=== PATIENT | female | born 1970 | race Caucasian/White ===

== ENCOUNTER 2018-04-22 10:55 | Day surgery (SDC) | payer BC ==
[2018-04-21 09:12] VITALS: BMI 31.8
[~2018-04-22 10:55] MED LIST: LACTATED RINGERS 1,000 ML IV SCH; LIDOCAINE 1% 20 ML VIAL (10MG/ML) FOR IV START INTRADERMA PRN
[2018-04-22 11:31] VITALS: RESP 16; TEMP 97.6
[2018-04-22 11:37] LABS: Glucose,Whole Blood 141 mg/dL (75-99)
[2018-04-22] MEDS ORDERED: PROPOFOL 10 MG/ML 20 ML VIAL IV ONE (12:01)
[2018-04-22] MEDS ORDERED: LIDOCAINE 1% INJ 10MG/ML (20 ML MDV) ONE (12:01)
[2018-04-22 12:24] VITALS: PULSE 75
--- NOTE | 2018-04-22 12:37 | P.PCN ---
Date of Procedure: 04/22/18 Procedure(s) Performed: Procedure: Esophagogastroduodenoscopy and biopsy. Preoperative diagnosis: Chronic reflux symptoms. Postoperative diagnosis: 1. Small sliding hiatal hernia with no obvious esophagitis or complicated reflux disease. 2. Mild antral gastritis. 3. Multiple biopsies obtained from the duodenum, antrum and esophagus. Preparation sedation: Was provided by anesthesia. Brief clinical history: The patient is a 48-year-old female who was scheduled for this evaluation because of chronic reflux symptoms. The patient has required twice a day dosing of PPI. No alarm symptoms. This evaluation is to assess for complicated reflux disease or other pathology. She had a barium swallow in February. This would be her first upper endoscopy. Procedure: With the patient on her left lateral decubitus position and after informed consent and adequate sedation, I passed the Olympus-GIF H190 video upper endoscope through the cricopharyngeus down the esophagus. GE junction was around 36-37 cm from the incisors and there was a small sliding hiatal hernia with no obvious esophagitis or complicated reflux disease. The endoscope was then passed into the stomach which was insufflated with air and inspected in detail including the retroflex view in the cardia. There was some mottling and erythema in the antrum but no ulcers or erosions. Pyloric channel , duodenal bulb, post bulbar area and descending duodenum appeared within normal limits. Because of her symptoms, I obtained biopsies from the duodenum, antrum and esophagus then the endoscope was withdrawn. The patient tolerated the procedure well. Plan: The patient was reassured. Will await biopsy results. Will continue antireflux diet and measures. Further plans based on her course and biopsy results. She will follow-up with you as planned.
[2018-04-22 12:41] VITALS: BP 124/85
== END 2018-04-22 12:58 | disposition home or self-care (01) ==
LOC: ORWHC2ENDO 10:55
DX: K29.50 Unspecified chronic gastritis without bleeding (principal); K21.9 Gastro-esophageal reflux disease without esophagitis; K44.9 Diaphragmatic hernia without obstruction or gangrene; F39 Unspecified mood [affective] disorder; I10 Essential (primary) hypertension; E78.5 Hyperlipidemia, unspecified; E11.9 Type 2 diabetes mellitus without complications; E07.9 Disorder of thyroid, unspecified; Z79.84 Long term (current) use of oral hypoglycemic drugs; Z79.82 Long term (current) use of aspirin; Z79.899 Other long term (current) drug therapy; Z79.890 Hormone replacement therapy
CPT/HCPCS: 88305; 43239; J2001; J2704

== ENCOUNTER 2018-05-22 15:36 | Emergency (ER) | payer BC ==
[2018-05-22 15:40] VITALS: RESP 18; TEMP 98.4
[2018-05-22] MEDS ORDERED: KETOROLAC 30 MG/ML 1 ML VIAL IVP STA (15:48)
--- NOTE | 2018-05-22 15:51 | ED ---
Extremity Problem HPI - General Chief complaint: Extremity Problem,Nontraumatic Stated complaint: Poss DVT, leg swelling Time Seen by Provider: 05/22/18 15:42 Source: patient Mode of arrival: ambulatory Limitations: no limitations - History of Present Illness Initial comments: 48-year-old female presenting with left lower extremity pain for the past 2 weeks. Patient states started in her calf and is now localized to the lower extremity below the knee, has been constant, is worse with ambulation, and is improved with naproxen. She denies any history of DVT or PE but admits to exogenous hormone therapy. She denies any recent travel, surgery, or active cancer. She denies any chest pain, shortness of breath, or fevers. Denies any trauma. - Related Data Home Medications Medication Instructions Recorded Confirmed Hydrochlorothiazide 12.5 mg PO QAM 04/20/18 04/22/18 Labetalol [Trandate] 100 mg PO BID 04/20/18 04/22/18 Levothyroxine Sodium [Synthroid] 50 mcg PO DAILY 04/20/18 04/22/18 Pantoprazole [Protonix] 40 mg PO BID 04/20/18 04/22/18 metFORMIN HCL ER [Glucophage Xr] 500 mg PO BID 04/20/18 04/22/18 Aspirin [Adult Low Dose Aspirin EC] 81 mg PO HS 04/21/18 04/22/18 Atorvastatin [Lipitor] 40 mg PO HS 04/21/18 04/22/18 Estradiol 0.5 mg PO DAILY 04/21/18 04/22/18 FLUoxetine HCL [PROzac] 20 mg PO DAILY 04/21/18 04/22/18 Fenofibrate,Micronized 134 mg PO DAILY 04/21/18 04/22/18 [Fenofibrate] Progesterone, Micronized 200 mg PO DAILY 04/21/18 04/22/18 [Progesterone] Allergies Allergy/AdvReac Type Severity Reaction Status Date / Time Penicillins Allergy Rash/Hives Verified 05/22/18 15:40 Review of Systems ROS Statement: Those systems with pertinent positive or pertinent negative responses have been documented in the HPI. Review of Systems Constitutional: Denies fever, chills Eyes: Denies change in vision, Denies pain Ears, nose, mouth, throat: Denies headaches, Denies sore throat Cardiovascular: Denies chest pain. Denies palpitations Respiratory: Denies shortness of breath, Denies cough Gastrointestinal: Denies abdominal pain. Denies nausea, vomiting, diarrhea. Genitourinary: Denies hematuria, Denies infections Musculoskeletal: Positive LLE pain. Denies swelling Integumentary: Denies rash Neurological: Denies headache, focal weakness, focal numbness Psychiatric: Denies anxiety, Denies depression Hematologic/Lymphatic: Denies easy bleeding or bruising ROS Other: All systems not noted in ROS Statement are negative. Past Medical History Past Medical History: Diabetes Mellitus, GERD/Reflux, Hyperlipidemia, Hypertension, Thyroid Disorder Additional Past Medical History / Comment(s): hiatal hernia, History of Any Multi-Drug Resistant Organisms: None Reported Past Surgical History: Section, Orthopedic Surgery Additional Past Surgical History / Comment(s): right hand surgery to remove cyst from hand and finger Past Anesthesia/Blood Transfusion Reactions: No Reported Reaction Past Psychological History: Anxiety, Depression Smoking Status: Current every day smoker Past Alcohol Use History: None Reported Past Drug Use History: None Reported - Past Family History Mother Family Medical History: No Reported History General Exam - General Exam Comments Initial Comments: General: Awake, alert, No acute Distress HENT: Normocephalic. Atraumatic Eyes: PERRL. EOMI. No scleral icterus. No injected conjunctiva Neck: Full ROM Chest/Lungs: Clear to auscultation bilaterally. No wheezing, rhonchi, or rales Cardiac: Regular rate, rhythm. No murmurs or rubs Abdomen/GI: Soft, nontender, nondistended. No rebound, guarding, or rigidity. Musculoskeletal: Full ROM.Tenderness to LLE calf. Varicose veins on left anterior lower extremity distal to the knee. No swelling or. deformity of BLE. 2+DP pulses bilaterally Skin: Warm, dry, intact Neurologic: A/Ox3, no weakness, no sensory deficit, no abnormal gait, no coordination deficit Limitations: no limitations Course Vital Signs 05/22/18 05/22/18 15:38 18:04 Temperature 98.4 F Pulse Rate 104 H 77 Respiratory 18 18 Rate Blood Pressure 162/78 121/86 O2 Sat by Pulse 99 98 Oximetry Medical Decision Making - Medical Decision Making 48-year-old female presenting with left lower chest pain. Initial exam the patient is awake alert no acute distress. Vital signs are stable. Patient denies any chest pain or shortness of breath. At this time a PE workup is not indicated. Her lower extremity ultrasound was negative. Her x-rays were negative for acute process. There is no evidence of cellulitis of her lower extremity. At this time no further emergent workup indicated. Patient is instructed to follow-up with her primary care doctor next week. We also discussed her by Reji odonnell that she states her work shoes her old and she is on her feet frequently. Patient was discharged in stable condition and understands return to ER precautions - Lab Data Result diagrams: 05/22/18 16:17 05/22/18 16:17 Lab Results 05/22/18 05/22/18 Range/Units 16:17 16:17 WBC 8.7 (3.8-10.6) k/uL RBC 4.50 (3.80-5.40) m/uL Hgb 13.4 (11.4-16.0) gm/dL Hct 41.0 (34.0-46.0) % MCV 91.0 (80.0-100.0) fL MCH 29.8 (25.0-35.0) pg MCHC 32.8 (31.0-37.0) g/dL RDW 14.4 (11.5-15.5) % Plt Count 395 (150-450) k/uL Neutrophils % 61 % Lymphocytes % 29 % Monocytes % 5 % Eosinophils % 3 % Basophils % 1 % Neutrophils # 5.3 (1.3-7.7) k/uL Lymphocytes # 2.6 (1.0-4.8) k/uL Monocytes # 0.4 (0-1.0) k/uL Eosinophils # 0.3 (0-0.7) k/uL Basophils # 0.1 (0-0.2) k/uL Sodium 142 (137-145) mmol/L Potassium 4.1 (3.5-5.1) mmol/L Chloride 109 H (98-107) mmol/L Carbon Dioxide 25 (22-30) mmol/L Anion Gap 8 mmol/L BUN 16 (7-17) mg/dL Creatinine 0.77 (0.52-1.04) mg/dL Est GFR (CKD-EPI)AfAm >90 (>60 ml/min/1.73 sqM) Est GFR (CKD-EPI)NonAf >90 (>60 ml/min/1.73 sqM) Glucose 113 H (74-99) mg/dL Calcium 10.2 (8.4-10.2) mg/dL HCG, Qual Not Detected Disposition Clinical Impression: Leg pain Disposition: HOME SELF-CARE Condition: Good Instructions (If sedation given, give patient instructions): Arthralgia (ED), Leg Pain (ED) Is patient prescribed a controlled substance at d/c from ED?: No Referrals: Kaiden Grijalva MD [Primary Care Provider] - 1-2 days
[2018-05-22 16:31] LABS: Basophils # (A) 0.1 k/uL (0-0.2); Basophils % (A) 1 %; Eosinophils # (A) 0.3 k/uL (0-0.7); Eosinophils % (A) 3 %; HGB 13.4 gm/dL (11.4-16.0); Lymphocytes # (A) 2.6 k/uL (1.0-4.8); Lymphocytes % (A) 29 %; MCH 29.8 pg (25.0-35.0); MCHC 32.8 g/dL (31.0-37.0); Mean Platelet Volume 6.8; Monocytes # (A) 0.4 k/uL (0-1.0); Monocytes % (A) 5 %; Neutrophils # (A) 5.3 k/uL (1.3-7.7); Neutrophils % (A) 61 %; Platelet Count 395 k/uL (150-450); RDW 14.4 % (11.5-15.5); WBC 8.7 k/uL (3.8-10.6)
--- NOTE | 2018-05-22 16:42 | US ---
EXAMINATION TYPE: US venous doppler duplex LE LT DATE OF EXAM: 05/22/2018 4:32 PM COMPARISON: NONE CLINICAL HISTORY: Pain. Leg pain. No hx of blood clots. No injury SIDE PERFORMED: Left TECHNIQUE: The left lower extremity deep venous system is examined utilizing real time linear array sonography with graded compression, doppler sonography and color-flow sonography. VESSELS IMAGED: External Iliac Vein (EIV) Common Femoral Vein Deep Femoral Vein Greater Saphenous Vein * Femoral Vein Popliteal Vein Small Saphenous Vein * Proximal Calf Veins (* superficial vessels) IMPRESSION: Left Leg: Negative for DVT
[2018-05-22 16:43] LABS: HCG,Qualitative Serum Not Detected
[2018-05-22 16:47] LABS: Anion Gap 8 mmol/L; Blood Urea Nitrogen 16 mg/dL (7-17); Calcium 10.2 mg/dL (8.4-10.2); Carbon Dioxide 25 mmol/L (22-30); Chloride 109 mmol/L (98-107); Glucose 113 mg/dL (74-99); Potassium 4.1 mmol/L (3.5-5.1); Sodium 142 mmol/L (137-145)
--- NOTE | 2018-05-22 17:40 | XR ---
EXAMINATION TYPE: XR knee complete LT DATE OF EXAM: 05/22/2018 CLINICAL HISTORY: Knee pain TECHNIQUE: Three views of the left knee are obtained. COMPARISON: None. FINDINGS: There is no acute fracture/dislocation evident in left knee. The tri-compartment joint sp aces appear within normal limits. The overlying soft tissue appears unremarkable. IMPRESSION: There is no acute fracture or dislocation in the left knee.
--- NOTE | 2018-05-22 17:41 | XR ---
EXAMINATION TYPE: XR tibia fibula LT DATE OF EXAM: 05/22/2018 CLINICAL HISTORY: TECHNIQUE: Two views of the left leg are obtained. COMPARISON: None. FINDINGS: There is no acute fracture or dislocation seen in the left tibia or fibula. The left knee and ankle joints appear within normal limits. The overlying soft tissue appears unremarkable. IMPRESSION: There is no acute fracture or dislocation seen in the left tibia or fibula.
[2018-05-22 18:06] VITALS: BP 121/86; PULSE 77
== END 2018-05-22 18:04 | disposition home or self-care (01) ==
LOC: EC 15:36
DX: M79.605 Pain in left leg (principal); E11.9 Type 2 diabetes mellitus without complications; K21.9 Gastro-esophageal reflux disease without esophagitis; E78.5 Hyperlipidemia, unspecified; I10 Essential (primary) hypertension; E07.9 Disorder of thyroid, unspecified; F32.9 Major depressive disorder, single episode, unspecified; F41.9 Anxiety disorder, unspecified; F17.200 Nicotine dependence, unspecified, uncomplicated; Z79.82 Long term (current) use of aspirin; Z79.84 Long term (current) use of oral hypoglycemic drugs; Z79.3 Long term (current) use of hormonal contraceptives; Z79.899 Other long term (current) drug therapy; Z88.0 Allergy status to penicillin
CPT/HCPCS: 36415; 80048; 85025; 84703; 73590; 73562; 93971; 99284; 96374; J1885

== ENCOUNTER → 2019-02-11 | Outpatient (CLI) | payer BC ==
--- NOTE | 2019-02-11 11:48 | MM ---
Reason for exam: screening (asymptomatic). Baseline mammogram. History: Patient is postmenopausal. Took hormonal contraceptives beginning at age 16. Took estrogen beginning at age 44. Took progesterone beginning at age 44. Physical Findings: Nurse did not find any significant physical abnormalities on exam. MG 3D Screening Mammo W/Cad Bilateral CC and MLO view(s) were taken. The breast tissue is heterogeneously dense. This may lower the sensitivity of mammography. Benign appearing bilateral calcifications. No suspicious abnormality. These results were verbally communicated with the patient and result sheet given to the patient on 02/11/19. ASSESSMENT: Benign, BI-RAD 2 RECOMMENDATION: Routine screening mammogram of both breasts in 1 year.
== END | disposition home or self-care (01) ==
LOC: RADMAMWWP 10:53
PROVIDERS: ATTEND Obstetrics & Gynecology
DX: Z12.31 Encounter for screening mammogram for malignant neoplasm of breast (principal)
CPT/HCPCS: 77063; 77067

== ENCOUNTER → 2020-07-12 | Outpatient (CLI) | payer BC ==
--- NOTE | 2020-07-16 14:00 | MM ---
Reason for exam: screening (asymptomatic). Last mammogram was performed 1 year and 5 months ago. History: Patient is postmenopausal. Took hormonal contraceptives beginning at age 16. Took estrogen beginning at age 44. Took progesterone beginning at age 44. Physical Findings: A clinical breast exam by your physician is recommended on an annual basis and results should be correlated with mammographic findings. MG 3D Screening Mammo W/Cad Bilateral CC and MLO view(s) were taken. Prior study comparison: February 11, 2019, bilateral MG 3d screening mammo w/cad. The breast tissue is heterogeneously dense. This may lower the sensitivity of mammography. There is chronic nodularity in the right breast. Benign oil cyst calcifications. No significant changes when compared with prior studies. ASSESSMENT: Benign, BI-RAD 2 RECOMMENDATION: Routine screening mammogram of both breasts in 1 year.
== END | disposition home or self-care (01) ==
LOC: RADMAMWWP 14:48
PROVIDERS: ATTEND Internal Medicine
DX: Z12.31 Encounter for screening mammogram for malignant neoplasm of breast (principal); Z78.0 Asymptomatic menopausal state
CPT/HCPCS: 77063; 77067

== ENCOUNTER 2022-08-27 06:33 | Day surgery (SDC) | payer BC ==
[~2022-08-27 06:33] MED LIST changes: +LIDOCAINE 1% (10MG/ML) FOR IV START INTRADERMA PRN; -LIDOCAINE 1% 20 ML VIAL (10MG/ML) FOR IV START INTRADERMA PRN
[2022-08-27] MEDS ORDERED: LACTATED RINGERS 1,000 ML IV ONE (06:47)
[2022-08-27 06:52] VITALS: TEMP 97.6
[2022-08-27 07:09] LABS: Glucose,Whole Blood 98 mg/dL (70-110)
[2022-08-27] MEDS ORDERED: PROPOFOL 10 MG/ML 20 ML VIAL IV ONE (07:25)
[2022-08-27] MEDS ORDERED: LIDOCAINE 2% INJ 20 MG/ML (2 ML VIAL) ONE (07:25)
--- NOTE | 2022-08-27 07:47 | P.PCN ---
Date of Procedure: 08/27/22 Procedure(s) Performed: Brief history: Patient is a pleasant 52-year-old white female scheduled for an elective upper endoscopy as well as colonoscopy as a part of evaluation of GERD and screening for colon cancer Procedure performed: Esophagogastroduodenoscopy with biopsy Colonoscopy Preoperative diagnosis: GERD Screening for colon cancer Anesthesia: [facility] [place] Procedure: After informed consent was obtained from the patient was brought into the endoscopy unit and IV sedation was administered by anesthesia under continuous monitoring. Initially upper endoscopy was done. The Olympus GF 160 video endoscope was inserted inserted into the mouth and esophagus intubated without any difficulty and was gradually advanced into the stomach and duodenum and carefully examined. The bulb and second part of the duodenum appeared normal. Abscesses were done from the duodenum to rule out celiac disease. The scope was then withdrawn into the stomach adequately insufflated with air and upon careful examination the antrum had patchy areas of erythema consistent with gastritis and biopsies were done from this area. Mucosa of of the body, cardia and fundus appeared normal. The scope was then withdrawn into the esophagus. Small hiatal hernia noted. The GE junction was located at 35 cm to the incisors. It appeared regular with no erythema erosions or ulcerations. Rest of the esophagus appeared normal. Patient tolerated the procedure well. At this time the patient continued to remain sedation. Initial digital rectal examination was normal. Olympus CF 160 video colonoscope was then inserted into the rectum and gradually advanced to the cecum without any difficulty. Careful examination was performed as the scope was gradually being withdrawn. The prep was fair. The cecum, ascending colon, transverse colon, descending colon, sigmoid colon and rectum appeared normal. Retroflexion was performed in the rectum and no lesions were noted. Patient tolerated the procedure well. Impression: 1. Upper endoscopy revealed small hiatal hernia and mild antral gastritis 2. Colonoscopy was within normal limits with no evidence of colorectal neoplasia Recommendations: Findings of this examination were discussed with the patient as well as her family. She was advised to follow with the biopsy results.. Recommend repeat screening colonoscopy in 10 years
[2022-08-27 08:07] VITALS: BP 104/64; PULSE 78; RESP 16
== END 2022-08-27 08:38 | disposition home or self-care (01) ==
LOC: ORWHC2ENDO 06:33
PROVIDERS: ATTEND Internal Medicine Gastroenterology
DX: Z12.11 Encounter for screening for malignant neoplasm of colon (principal); K29.80 Duodenitis without bleeding; K29.50 Unspecified chronic gastritis without bleeding; K21.9 Gastro-esophageal reflux disease without esophagitis; K44.9 Diaphragmatic hernia without obstruction or gangrene; I10 Essential (primary) hypertension; E78.5 Hyperlipidemia, unspecified; F17.200 Nicotine dependence, unspecified, uncomplicated; E11.9 Type 2 diabetes mellitus without complications; E07.9 Disorder of thyroid, unspecified; Z79.899 Other long term (current) drug therapy; Z88.0 Allergy status to penicillin
CPT/HCPCS: 45378; 88305; 43239; J2704; J2001

== ENCOUNTER → 2024-04-05 | Outpatient (CLI) | payer BC ==
[2024-04-05 14:46] VITALS: BP 134/84; PULSE 100; RESP 17; TEMP 98.3
--- NOTE | 2024-04-05 15:55 | P.HPOB ---
History of Present Illness H&P Date: 04/05/24 Chief Complaint: The patient is here for her routine gynecologic exam and ma mmogram. This is a 54-year-old -0-1-2 with an LMP of 2013. The patient is here to establish with at this office. She previously saw Dr. Thompson for her gynecologic care. She has been on HRT for more than 5 years. She states she had significant anxiety with the menopausal change and HRT has helped. She also still has some vasomotor symptoms. She denies any postmenopausal bleeding. Review of Systems The patient's weight has been stable over the last year. She denies respiratory, cardiac, or G.I. problems. Past Medical History Past Medical History: Diabetes Mellitus, GERD/Reflux, Hyperlipidemia, Hypertension, Thyroid Disorder Additional Past Medical History / Comment(s): hiatal hernia. 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 History of Any Multi-Drug Resistant Organisms: None Reported Past Surgical History: Section, Orthopedic Surgery Additional Past Surgical History / Comment(s): right hand surgery to remove cyst from hand and finger. x 2. EGD. Colonoscopy 2022(next after 10yr) Past Anesthesia/Blood Transfusion Reactions: No Reported Reaction Past Psychological History: Anxiety, Depression Smoking Status: Former smoker, Vaper (Currently vapes.) Past Alcohol Use History: None Reported Additional Past Alcohol Use History / Comment(s): smokes 1/2 PPD, has smoked for 30 yrs. quit smoking cigarettes in 2022. Past Drug Use History: None Reported Additional History: She has been since 2004. She is an supervisor ride assembly at a factory. - Past Family History Mother Family Medical History: Diabetes Mellitus, Hypertension Father Family Medical History: Diabetes Mellitus, Hypertension, Myocardial Infarction ([place]) Medications and Allergies Home Medications Medication Instructions Recorded Confirmed Type Labetalol [Trandate] 100 mg PO BID 04/20/18 04/05/24 History Levothyroxine Sodium [Synthroid] 50 mcg PO DAILY 04/20/18 04/05/24 History Pantoprazole [Protonix] 40 mg PO DAILY 04/20/18 04/05/24 History hydroCHLOROthiazide 12.5 mg PO QAM 04/20/18 04/05/24 History metFORMIN HCL ER [Glucophage Xr] 500 mg PO BID 04/20/18 04/05/24 History Aspirin [Adult Low Dose Aspirin EC] 81 mg PO HS 04/21/18 04/05/24 History Atorvastatin [Lipitor] 40 mg PO HS 04/21/18 04/05/24 History FLUoxetine HCL [PROzac] 20 mg PO DAILY 04/21/18 04/05/24 History Fenofibrate,Micronized 134 mg PO DAILY 04/21/18 04/05/24 History [Fenofibrate] Progesterone, Micronized 200 mg PO DAILY 04/21/18 04/05/24 History [Progesterone] estradioL [Estradiol] 0.5 mg PO DAILY 04/21/18 04/05/24 History Pioglitazone [Actos] 15 mg PO DAILY 08/26/22 04/05/24 History Allergies Allergy/AdvReac Type Severity Reaction Status Date / Time Penicillins Allergy Rash/Hives Verified 08/27/22 06:54 Exam Vital Signs Temp Pulse Resp BP Pulse Ox 04/05/24 14:42 98.3 F 100 17 134/84 98 Intake and Output 04/05/24 04/05/24 04/05/24 06:59 14:59 22:59 Other: Weight 78.471 kg Height 5 feet 3 inches, weight 173 pounds, BMI 30.6. This is a well-developed well-nourished white female who is alert and oriented times 3 in no acute distress. HEENT: Within normal limits. NECK: Supple without mass or thyromegaly. CHEST AND LUNGS: Clear to auscultation. HEART: Regular rate and rhythm. BREASTS: Are without mass or discharge. AXILLARY EXAM: Negative for adenopathy. There is mild left axillary tenderness with palpation. She thinks it might be related to a sore muscle that she might have been using more often than usual. There is no palpable adenopathy. BACK: Negative for CVA tenderness. ABDOMEN: Soft, nontender, without palpable masses. PELVIC EXAM: Normal external genitalia mild atrophy. Cervix and vagina appear normal with mild atrophy. There is no unusual discharge. There is no evidence of prolapse. The uterus is midposition, nongravid size and nontender. There are no palpable adnexal masses or tenderness. RECTAL EXAM:rectovaginal exam is negative for mass or tenderness and is negative for occult blood. EXTREMITIES: Nontender. IMPRESSION: 1. 54-year-old menopausal female with normal gynecologic exam. 2. On low-dose HRT. PLAN: 1. Pap smear cotest was performed. 2. Self breast awareness was discussed with the patient. We have also discussed symptoms associated with inflammatory breast cancer. 3. Screening mammogram will be done today. 4. Osteoporosis prevention was discussed. I have stressed the importance of adequate calcium, vitamin D and regular exercise. Recommended amounts of calcium and vitamin D were also discussed. 5. We have had a long discussion regarding hormone replacement therapy. We carmen e discussed possible increased risk for heart attack, stroke, blood clots, and breast cancer. I have recommended that she try to gradually wean off of HRT. A prescription for estradiol 0.5 mg daily and progesterone 200 mg daily be sent to [facility] pharmacy. During the upcoming year, she will try to gradually wean down from the current dose of estradiol. We have discussed ways that she can do this. She will try to find the lowest effective dose for the HRT. She will call if problems. 6. She was advised to return in one year for her annual well woman exam and as needed.
--- NOTE | 2024-04-06 07:19 | MM ---
Reason for Exam: Screening (asymptomatic). Last mammogram was performed 3 year(s) and 9 month(s) ago. Patient History: Menarche at age 9. First Full-Term at age 24. Postmenopausal. Estrogen, from age 44 until age 48. Progesterone, from age 44 until age 48. Hormonal Contraceptives, from age 16 until age 23. Risk Values: Naomy 5 year model risk: 1.4%. NCI Lifetime model risk: 9.9%. Prior Study Comparison: 02/11/2019 Bilateral Screening Mammogram, [facility]. 07/12/2020 Bilateral Screening Mammogram, [facility]. Tissue Density: There are scattered areas of fibroglandular density. Findings: Analyzed By CAD. Right breast: There is no suspicious group of microcalcifications or new suspicious mass. Left breast: There is no suspicious group of microcalcifications or new suspicious mass. Overall Assessment: Negative, BI-RAD 1 Management: Screening Mammogram of both breasts in [address] [facility] will attempt to contact patient to return for supplemental views and ultrasound if indicated. Patient should continue monthly self-breast exams. A clinical breast exam by your physician is recommended on an annual basis. This exam should not preclude additional follow-up of suspicious palpable abnormalities. Note on Naomy scores and lifetime risk: 1. A Naomy score greater than 3% is considered moderate risk. If this is the case, consider specialist referral to assess eligibility for a risk reducing agent. 2. If overall lifetime risk for the development of breast cancer is 20% or higher, the patient may qualify for future screening with alternating mammogram and breast MRI. [facility], , 04/06/2024 7:16 AM. Electronically signed and approved by: Abdifatah Miranda DO
== END ==
LOC: WWCWWP 14:27
PROVIDERS: ATTEND Obstetrics & Gynecology
DX: Z01.419 Encounter for gynecological examination (general) (routine) without abnormal findings (principal); Z12.31 Encounter for screening mammogram for malignant neoplasm of breast; Z78.0 Asymptomatic menopausal state; Z88.0 Allergy status to penicillin; Z87.891 Personal history of nicotine dependence; Z79.890 Hormone replacement therapy
CPT/HCPCS: 77063; 77067

== ENCOUNTER 2024-07-07 08:07 | Emergency (ER) | payer BC ==
[2024-07-07 08:12] VITALS: BP 135/85; PULSE 91; RESP 22; TEMP 98.4
--- NOTE | 2024-07-07 08:29 | ED ---
Abdominal Pain HPI - General Chief Complaint: Abdominal Pain Stated Complaint: ABD PAIN Time Seen by Provider: 07/07/24 08:17 Source: patient, RN notes reviewed Mode of arrival: ambulatory Limitations: no limitations - History of Present Illness Initial Comments: 54-year-old female with medical history of T2DM and cholelithiasis presenting to the emergency department with abdominal pain. Patient states that she frequently experiences biliary colic however yesterday around noon she began to experience right upper abdominal pain with radiation into her right back/shoulder that has wrapped around the front of her abdomen with associated nausea. She denies fevers, chills, emesis, urinary or bowel habit changes. Denies previous surgical abdominal history. Patient has known biliary colic and had appointment with general surgeon, Dr. Redmond, 07/05/24, where she states that she was instructed to report to emergency department if pain persists. - Related Data Home Medications Medication Instructions Recorded Confirmed Labetalol [Trandate] 100 mg PO BID 04/20/18 04/05/24 Levothyroxine Sodium [Synthroid] 50 mcg PO DAILY 04/20/18 04/05/24 Pantoprazole [Protonix] 40 mg PO DAILY 04/20/18 04/05/24 hydroCHLOROthiazide 12.5 mg PO QAM 04/20/18 04/05/24 metFORMIN HCL ER [Glucophage Xr] 500 mg PO BID 04/20/18 04/05/24 Aspirin [Adult Low Dose Aspirin EC] 81 mg PO HS 04/21/18 04/05/24 Atorvastatin [Lipitor] 40 mg PO HS 04/21/18 04/05/24 FLUoxetine HCL [PROzac] 20 mg PO DAILY 04/21/18 04/05/24 Fenofibrate,Micronized 134 mg PO DAILY 04/21/18 04/05/24 [Fenofibrate] Pioglitazone [Actos] 15 mg PO DAILY 08/26/22 04/05/24 Previous Rx's Medication Instructions Recorded Progesterone, Micronized 200 mg PO DAILY #90 capsule 04/06/24 [Progesterone] estradioL [Estrace] 0.5 mg PO DAILY #90 tablet 04/06/24 Ondansetron Odt [Zofran Odt] 4 mg PO Q8HR PRN #10 tab 07/07/24 Allergies Allergy/AdvReac Type Severity Reaction Status Date / Time amoxicillin Allergy Rash/Hives Verified 07/07/24 08:12 Penicillins Allergy Rash/Hives Verified 08/27/22 06:54 Review of Systems ROS Statement: Those systems with pertinent positive or pertinent negative responses have been documented in the HPI. ROS Other: All systems not noted in ROS Statement are negative. Past Medical History Past Medical History: Diabetes Mellitus, GERD/Reflux, Hyperlipidemia, Hypertension, Thyroid Disorder Additional Past Medical History / Comment(s): hiatal hernia. PAST MANAGER CASE MANAGEMENT HISTORY: She has no history of STDs. History of Any Multi-Drug Resistant Organisms: None Reported Past Surgical History: Section, Orthopedic Surgery Additional Past Surgical History / Comment(s): right hand surgery to remove cyst from hand and finger. x 2. EGD. Colonoscopy 2022(next after 10yr) Past Anesthesia/Blood Transfusion Reactions: No Reported Reaction Past Psychological History: Anxiety, Depression Smoking Status: Former smoker, Vaper Past Alcohol Use History: None Reported Past Drug Use History: None Reported - Past Family History Mother Family Medical History: Diabetes Mellitus, Hypertension Father Family Medical History: Diabetes Mellitus, Hypertension, Myocardial Infarction ([place]) General Exam Limitations: no limitations General appearance: alert, in no apparent distress Neck exam: Present: normal inspection. Absent: tenderness, meningismus, lymphadenopathy Respiratory exam: Present: normal lung sounds bilaterally. Absent: respiratory distress, wheezes, rales, rhonchi, stridor Cardiovascular Exam: Present: regular rate, normal rhythm, normal heart sounds. Absent: systolic murmur, diastolic murmur, rubs, gallop, clicks GI/Abdominal exam: Present: soft, tenderness (RUQ/epigastric), normal bowel sounds. Absent: distended, guarding, rebound, rigid Extremities exam: Present: normal inspection, full ROM, normal capillary refill. Absent: tenderness, pedal edema, joint swelling, calf tenderness Back exam: Present: normal inspection. Absent: CVA tenderness (R), CVA tenderness (L) Course Vital Signs 07/07/24 08:08 Temperature 98.4 F Pulse Rate 91 Respiratory 22 Rate Blood Pressure 135/85 O2 Sat by Pulse 100 Oximetry Medical Decision Making - Medical Decision Making Was pt. sent in by a medical professional or institution (, PA, MUSIC INDUSTRY INTERN, urgent care, hospital, or longterm...) When possible be specific @ -No Did you speak to anyone other than the patient for history (EMS, parent, family, police, friend...)? What history was obtained from this source @ -No Did you review nursing and triage notes (agree or disagree)? Why? @ -I reviewed and agree with nursing and triage notes Were old charts reviewed (outside hosp., previous admission, EMS record, old EKG, old radiological studies, urgent care reports/EKG's, longterm records)? Report findings @ -No old charts were reviewed Differential Diagnosis (chest pain, altered mental status, abdominal pain women, abdominal pain men, vaginal bleeding, weakness, fever, dyspnea, syncope, headache, dizziness, GI bleed, back pain, seizure, CVA, palpatations, mental health, musculoskeletal)? @ -Differential Abdominal Pain Women: Appendicitis, Cholecystitis, diverticulosis, ischemic bowel, pancreatitis, hepa titis, UTI, gastroenteritis, AAA, incarcerated hernia, bowel obstruction, constipation, inflammatory bowel, hepatitis, peptic ulcer disease, splenic infarction, perforated viscus, vulvitis, ovarian torsion, PID, kidney stone, placenta abruption, this is not meant to be an all-inclusive list EKG interpreted by me (3pts min.). @ -None X-rays interpreted by me (1pt min.). @ -None done CT interpreted by me (1pt min.). @ -None done U/S interpreted by me (1pt. min.). @ -Ultrasound of the gallbladder reveals cholelithiasis What testing was considered but not performed or refused? (CT, X-rays, U/S, labs)? Why? @ -None What meds were considered but not given or refused? Why? @ -None Did you discuss the management of the patient with other professionals (professionals i.e. , PA, MUSIC INDUSTRY INTERN, lab, RT, psych nurse, social worker health services, electrician's helper, teacher, school resource officer, caseworker protective services)? Give summary @ -I spoke with patient's general surgeon, Dr. Redmond, in regard to the patient's laboratory testing ultrasound imaging. It is recommended that patient is tolerating oral intake, nausea is subsided and pain is controlled recommend close follow-up outpatient for likely surgical intervention. Was smoking cessation discussed for >3mins.? @ -No Was critical care preformed (if so, how long)? @ -No Were there social determinants of health that impacted care today? How? (Homelessness, low income, unemployed, alcoholism, drug addiction, transportation, low edu. Level, literacy, decrease access to med. care, fpc, rehab)? @ -No Was there de-escalation of care discussed even if they declined (Discuss DNR or withdrawal of care, Hospice)? DNR status @ -No What co-morbidities impacted this encounter? (DM, HTN, Smoking, COPD, CAD, Cancer, CVA, ARF, Chemo, Hep., AIDS, mental health diagnosis, sleep apnea, morbid obesity)? @ -None Was patient admitted / discharged? Hospital course, mention meds given and route, prescriptions, significant lab abnormalities, going to OR and other pertinent info. @ -Discharge. 54-year-old female presenting with abdominal pain. Pain is reproducible in the epigastric and right upper quadrant. Overall she is well- appearing with no signs of rebound tenderness or rigidity on abdominal exam. She is provided with pain medications and will undergo laboratory evaluation in addition to ultrasound imaging. CBC is unremarkable, CMP reveals a mildly elevated lactic acid at 2.3, LFTs and pancreatic enzymes within normal. Urinalysis with signs infection. Patient is read with liter fluid bolus due to elevated lactic acid. Ultrasound reveals cholelithiasis with no evidence of acute cholecystitis. I spoke with patient's general surgeon who recommends that patient follow-up closely outpatient if pain and nausea are well-controlled. Patient is provided with starter pack of Tylenol 3 in addition to prescription for Zofran. Return parameters discussed. Discussed importance of following up outpatient closely. Case discussed with Dr. Felder Undiagnosed new problem with uncertain prognosis? @ -No Drug Therapy requiring intensive monitoring for toxicity (Heparin, Nitro, Insulin, Cardizem)? @ -No Were any procedures done? @ -No Diagnosis/symptom? @ -Biliary colic Acute, or Chronic, or Acute on Chronic? @ -Acute Uncomplicated (without systemic symptoms) or Complicated (systemic symptoms)? @ -Uncomplicated Side effects of treatment? @ -No Exacerbation, Progression, or Severe Exacerbation? @ -No Poses a threat to life or bodily function? How? (Chest pain, [place], [place], pneumonia, PE, COPD, DKA, ARF, appy, cholecystitis, CVA, Diverticulitis, Homicidal, Suicidal, threat to staff... and all critical care pts) @ -No - Lab Data Result diagrams: 07/07/24 08:50 07/07/24 08:50 Lab Results 07/07/24 07/07/24 07/07/24 Range/Units 08:50 08:50 08:50 WBC 5.31 (4.50-10.00) 10*3/uL RBC 4.94 (4.10-5.20) 10*6/uL Hgb 13.0 (12.0-15.0) g/dL Hct 41.1 (37.2-46.3) % MCV 83.2 (80.0-97.0) fL MCH 26.3 L (27.0-32.0) pg MCHC 31.6 L (32.0-37.0) g/dL Plt Count 394 (140-440) 10*3/uL MPV 9.2 L (9.5-12.2) fL Immature Gran % (Auto) 0.2 % Neutrophils % 70.4 % Lymphocytes % 20.7 % Monocytes % 6.0 % Eosinophils % 1.9 % Basophils % 0.8 % Immature Gran # 0.01 (0.00-0.04) 10*3/uL Neutrophils # 3.74 (1.80-7.70) 10*3/uL Lymphocytes # 1.10 (0.90-5.00) 10*3/uL Monocytes # 0.32 (0.20-1.00) 10*3/uL Eosinophils # 0.10 (0.04-0.35) 10*3/uL Basophils # 0.04 (0.00-0.10) 10*3/uL Sodium 140 (137-145) mmol/L Potassium 4.3 (3.5-5.1) mmol/L Chloride 104 (98-107) mmol/L Carbon Dioxide 23 (22-30) mmol/L Anion Gap 13 mmol/L BUN 21 H (7-17) mg/dL Creatinine 0.71 (0.52-1.04) mg/dL Est GFR (CKD-EPI)AfAm >90 (>60 ml/min/1.73 sqM) Est GFR (CKD-EPI)NonAf >90 (>60 ml/min/1.73 sqM) Glucose 149 H (74-99) mg/dL Plasma Lactic Acid Constantin (0.7-2.0) mmol/L Calcium 10.5 H (8.4-10.2) mg/dL Total Bilirubin 0.9 (0.2-1.3) mg/dL AST 36 (14-36) U/L ALT 27 (4-34) U/L Alkaline Phosphatase 48 (38-126) U/L Total Protein 8.6 H (6.3-8.2) g/dL Albumin 5.3 H (3.5-5.0) g/dL Amylase 50 (30-110) U/L Lipase 115 (23-300) U/L Urine Color Colorless Urine Appearance Clear (Clear) Urine pH 5.5 (5.0-8.0) Ur Specific [place] 1.039 H (1.001-1.035) Urine Protein Negative (Negative) Urine Glucose (UA) 4+ H (Negative) Urine Ketones Negative (Negative) Urine Blood Negative (Negative) Urine Nitrite Negative (Negative) Urine Bilirubin Negative (Negative) Urine Urobilinogen <2.0 (<2.0) mg/dL Ur Leukocyte Esterase Negative (Negative) 07/07/24 Range/Units 08:54 WBC (4.50-10.00) 10*3/uL RBC (4.10-5.20) 10*6/uL Hgb (12.0-15.0) g/dL Hct (37.2-46.3) % MCV (80.0-97.0) fL MCH (27.0-32.0) pg MCHC (32.0-37.0) g/dL Plt Count (140-440) 10*3/uL MPV (9.5-12.2) fL Immature Gran % (Auto) % Neutrophils % % Lymphocytes % % Monocytes % % Eosinophils % % Basophils % % Immature Gran # (0.00-0.04) 10*3/uL Neutrophils # (1.80-7.70) 10*3/uL Lymphocytes # (0.90-5.00) 10*3/uL Monocytes # (0.20-1.00) 10*3/uL Eosinophils # (0.04-0.35) 10*3/uL Basophils # (0.00-0.10) 10*3/uL Sodium (137-145) mmol/L Potassium (3.5-5.1) mmol/L Chloride (98-107) mmol/L Carbon Dioxide (22-30) mmol/L Anion Gap mmol/L BUN (7-17) mg/dL Creatinine (0.52-1.04) mg/dL Est GFR (CKD-EPI)AfAm (>60 ml/min/1.73 sqM) Est GFR (CKD-EPI)NonAf (>60 ml/min/1.73 sqM) Glucose (74-99) mg/dL Plasma Lactic Acid Constantin 2.3 H* (0.7-2.0) mmol/L Calcium (8.4-10.2) mg/dL Total Bilirubin (0.2-1.3) mg/dL AST (14-36) U/L ALT (4-34) U/L Alkaline Phosphatase (38-126) U/L Total Protein (6.3-8.2) g/dL Albumin (3.5-5.0) g/dL Amylase (30-110) U/L Lipase (23-300) U/L Urine Color Urine Appearance (Clear) Urine pH (5.0-8.0) Ur Specific [place] (1.001-1.035) Urine Protein (Negative) Urine Glucose (UA) (Negative) Urine Ketones (Negative) Urine Blood (Negative) Urine Nitrite (Negative) Urine Bilirubin (Negative) Urine Urobilinogen (<2.0) mg/dL Ur Leukocyte Esterase (Negative) Disposition Clinical Impression: Biliary colic Disposition: HOME SELF-CARE Condition: Good Instructions (If sedation given, give patient instructions): Biliary Colic (ED) Additional Instructions: Please return to the Emergency Department if symptoms worsen or any other concerns. As discussed, contact your general surgeon for close outpatient follow-up. Prescriptions: Ondansetron Odt [Zofran Odt] 4 mg PO Q8HR PRN #10 tab PRN Reason: Nausea Is patient prescribed a controlled substance at d/c from ED?: No Referrals: Kaiden Grijalva MD [Primary Care Provider] - 1-2 days Time of Disposition: 11:01
[2024-07-07] MEDS: ONDANSETRON 4 MG/2 ML VIAL IVP STA (08:52)
[2024-07-07] MEDS: HYDROmorphone 0.5 MG/0.5 ML SYRINGE IVP STA (08:52)
[2024-07-07 09:11] LABS: Basophils # (A) 0.04 10*3/uL (0.00-0.10); Basophils % (A) 0.8 %; Eosinophils % (A) 1.9 %; HCT 41.1 % (37.2-46.3); Lymphocytes % (A) 20.7 %; MCH 26.3 pg (27.0-32.0); MCHC 31.6 g/dL (32.0-37.0); MCV 83.2 fL (80.0-97.0); Mean Platelet Volume 9.2 fL (9.5-12.2); Monocytes # (A) 0.32 10*3/uL (0.20-1.00); Neutrophils # (A) 3.74 10*3/uL (1.80-7.70); Neutrophils % (A) 70.4 %; Platelet Count 394 10*3/uL (140-440); RBC 4.94 10*6/uL (4.10-5.20); RDW 15.4 % (11.5-14.5); WBC 5.31 10*3/uL (4.50-10.00)
[2024-07-07 09:12] LABS: Appearance,Urine Clear (Clear); Bilirubin,Urine Negative (Negative); Blood,Urine Negative (Negative); Color,Urine Colorless; Glucose,Urine (UA) 4+ (Negative); Ketones,Urine Negative (Negative); Leukocyte Esterase,Urine Negative (Negative); Nitrite,Urine Negative (Negative); PH, Urine 5.5 (5.0-8.0); Protein,Urine Negative (Negative); Specific Gravity,Urine 1.039 (1.001-1.035); Urobilinogen,Urine <2.0 mg/dL (<2.0)
[2024-07-07 09:34] LABS: ALT 27 U/L (4-34); African American GFR (CKD) >90 (>60 ml/min/1.73 sqM); Albumin 5.3 g/dL (3.5-5.0); Amylase 50 U/L (30-110); Anion Gap 13 mmol/L; Blood Urea Nitrogen 21 mg/dL (7-17); Calcium 10.5 mg/dL (8.4-10.2); Carbon Dioxide 23 mmol/L (22-30); Chloride 104 mmol/L (98-107); Glucose 149 mg/dL (74-99); Lipase 115 U/L (23-300); Non-African American GFR(CKD) >90 (>60 ml/min/1.73 sqM); Sodium 140 mmol/L (137-145); Total Bilirubin 0.9 mg/dL (0.2-1.3); Total Protein 8.6 g/dL (6.3-8.2)
[2024-07-07 09:45] LABS: AST 36 U/L (14-36); Alkaline Phosphatase 48 U/L (38-126); Potassium 4.3 mmol/L (3.5-5.1)
--- NOTE | 2024-07-07 09:53 | US ---
EXAMINATION TYPE: US gallbladder DATE OF EXAM: 07/07/2024 COMPARISON: NONE CLINICAL INDICATION: Female, 54 years old with history of hx gallstones, RUQ ab pain; RUQ pain x 1 da y. Hx gallstones TECHNIQUE: Grayscale and color Doppler imaging of the right upper quadrant. FINDINGS: EXAM MEASUREMENTS: Liver Length: 15.3 cm Gallbladder Wall: 0.16 cm CBD: Obscured Right Kidney: 11.7 x 5.8 x 4.5 cm [employer]PER[employer]OR [employer] NOTES: Exam is limited due to gas Pancreas: Tail and portion of pancreatic head was not well seen. Duct measures 2.2 mm Liver: Appears coarse/heterogeneous Gallbladder: Hyperechoic focus with shadowing seen within: 1.9 x 1.2 x 1.0 cm. Evidence for sonographic Ramos's sign: No CBD: Obscured Right Kidney: No hydronephrosis or masses seen IMPRESSION: 1. Cholelithiasis. [facility] Garc[facility], , 07/07/2024 9:51 AM
[2024-07-07] MEDS: SODIUM CHLORIDE 0.9% 1,000 ML IV STA (10:07)
[2024-07-07] MEDS: ACET/COD 300 MG/30 MG STARTER PACK 6 TAB BTL PO STA (11:14)
== END 2024-07-07 11:21 | disposition home or self-care (01) ==
LOC: EC 08:07
DX: K80.70 Calculus of gallbladder and bile duct without cholecystitis without obstruction (principal); R74.02 Elevation of levels of lactic acid dehydrogenase [LDH]; F17.290 Nicotine dependence, other tobacco product, uncomplicated; Z88.0 Allergy status to penicillin
CPT/HCPCS: 99284; 96374; 96375; 96361; 36415; 80053; 82150; 83605; 83690; 85025; 81003; 76705; J2405; J1171

== ENCOUNTER → 2024-07-08 | Outpatient (CLI) | payer BC | END | disposition home or self-care (01) | LOC: LABWHC1 15:17 | PROVIDERS: ATTEND Surgery Plastic and Reconstructive Surgery | DX: R07.9 Chest pain, unspecified (principal) | CPT/HCPCS: 36415; 93005 ==

== ENCOUNTER 2024-07-21 12:32 | Day surgery (SDC) | payer BC ==
[2024-07-18 10:21] VITALS: BMI 30.1
--- NOTE | 2024-07-21 08:36 | P.GSHP ---
History of Present Illness H&P Date: 07/21/24 CHIEF COMPLAINT: Cholecystitis HISTORY OF PRESENT ILLNESS: The patient is a 54-year-old female who presents with history of epigastric including right upper quadrant abdominal pain. She underwent diagnostic studies for her gallbladder. Separately her clinical picture was consistent with cholecystitis. Now she presents for surgical intervention. PAST MEDICAL HISTORY: Please see list PAST SURGICAL HISTORY: Please see list MEDICATIONS: Please see list ALLERGIES: Please see list SOCIAL HISTORY: Please see list FAMILY HISTORY: Please see list. Reports family history of significant cardiac disease. REVIEW OF ORGAN SYSTEMS: CONSTITUTIONAL: No reports of fevers or chills. HEENT: Denies any troubles with the vision or hearing. ENDOCRINE: No reports of hypothyroidism. No diabetes. RESPIRATORY: No recent pneumonias. CARDIOVASCULAR: Denies chest pain or palpitations GI: No blood in stools or constipation. MUSCULOSKELETAL: Has occasional joint pain including back pain. NEURO: No seizure disorders or headaches. No recent stroke. PSYCH: No depression or suicidal ideation. GENITOURINARY: No active blood in urine. No urinary hesitancy. HEMATOLOGIC: No personal or family history of DVTs or pulmonary emboli. SKIN: No skin cancer. PHYSICAL EXAM: VITAL SIGNS: Afebrile vital signs stable GENERAL: Well-developed pleasant in no acute distress. HEENT: No scleral icterus. Extraocular movements grossly intact. Moist buccal mucosa. NECK: Supple without lymphadenopathy. CHEST: Unlabored respirations. Equal bilateral excursions. CARDIOVASCULAR: Regular rate regular rhythm rhythm. Distal 2+ pulses. ABDOMEN: Soft, nondistended. Tender along the epigastrium and right upper quadrant. MUSCULOSKELETAL: No clubbing, cyanosis, or edema. NEURO: Cranial nerves II to XII within normal limits. No focal or lateralizing signs. PSYCH: Alert and oriented to person, place and time. SKIN: Well-perfused good skin turgor. STUDIES: Ultrasound of gallbladder report reviewed demonstrates gallstone LABS: CBC and CMP within normal limits EKG: Borderline normal EKG ASSESSMENT: 1. Epigastric and right upper quadrant abdominal pain 2. Chronic cholecystitis 3. Symptomatic gallstones. PLAN: 1. Will need a robotic cholecystectomy possible open. Benefits and risks were described. 2. Heparin for DVT prophylaxis 5000 units. 3. Antibiotic prophylaxis. 4. CBC and CMP on day of procedure 5. Non-narcotic pre and post op pain management reviewed. 6. Indocyanine green for biliary imaging. 7. Patient is elevated risk for complication especially with pre-existing family history of cardiac disease Past Medical History Past Medical History: Diabetes Mellitus, GERD/Reflux, Hyperlipidemia, Hypertension, Thyroid Disorder Additional Past Medical History / Comment(s): Hiatal hernia. History of Any Multi-Drug Resistant Organisms: None Reported Past Surgical History: Section, Orthopedic Surgery Additional Past Surgical History / Comment(s): Right hand surgery to remove cyst from hand and finger, section xX2, EGD, colonoscopy. Past Anesthesia/Blood Transfusion Reactions: No Reported Reaction Smoking Status: Former smoker, Vaper - Past Family History Mother Family Medical History: Diabetes Mellitus, Hypertension Father Family Medical History: Diabetes Mellitus, Hypertension, Myocardial Infarction ([place]) Medications and Allergies Home Medications Medication Instructions Recorded Confirmed Type Labetalol [Trandate] 100 mg PO BID 04/20/18 07/18/24 History Levothyroxine Sodium [Synthroid] 50 mcg PO DAILY 04/20/18 07/18/24 History Pantoprazole [Protonix] 40 mg PO DAILY 04/20/18 07/18/24 History hydroCHLOROthiazide 12.5 mg PO QAM 04/20/18 07/18/24 History metFORMIN HCL ER [Glucophage Xr] 500 mg PO BID 04/20/18 07/18/24 History Aspirin [Adult Low Dose Aspirin EC] 81 mg PO HS 04/21/18 07/18/24 History Atorvastatin [Lipitor] 40 mg PO HS 04/21/18 07/18/24 History FLUoxetine HCL [PROzac] 20 mg PO DAILY 04/21/18 07/18/24 History Fenofibrate,Micronized 134 mg PO DAILY 04/21/18 07/18/24 History [Fenofibrate] Pioglitazone [Actos] 15 mg PO DAILY 08/26/22 07/18/24 History Progesterone, Micronized 200 mg PO DAILY #90 capsule 04/06/24 07/18/24 Rx [Progesterone] estradioL [Estrace] 0.5 mg PO DAILY #90 tablet 04/06/24 07/18/24 Rx Ondansetron Odt [Zofran Odt] 4 mg PO Q8HR PRN #10 tab 07/07/24 07/18/24 Rx Acetaminophen [Tylenol Extra 500 - 1,000 mg PO Q4-6H PRN 07/18/24 07/18/24 History Strength] Empagliflozin [Jardiance] 25 mg PO DAILY 07/18/24 07/18/24 History Allergies Allergy/AdvReac Type Severity Reaction Status Date / Time amoxicillin Allergy Rash/Hives Verified 07/18/24 10:06 Penicillins Allergy Rash/Hives Verified 07/18/24 10:06
[~2024-07-21 12:32] MED LIST changes: +INDOCYANINE GREEN 25 MG VIAL IV STA; -LACTATED RINGERS 1,000 ML IV SCH; +MIDAZOLAM 2 MG/2 ML VIAL IV PRN; +ONDANSETRON 4 MG/2 ML VIAL IVP PRN; +fentaNYL (PF) 50 MCG/ML 2 ML AMP IVP PRN
[2024-07-21] MEDS: IV FLUID CONTINUATION 1,000 ML IV ONE (13:14)
[2024-07-21 13:38] LABS: Glucose,Whole Blood 121 mg/dL (70-110)
[2024-07-21] MEDS: LACTATED RINGERS 1,000 ML IV SCH (13:41)
[2024-07-21] MEDS: DEXAMETHASONE SOD PHOSPHATE 4 MG/ML 1 ML VIAL IV ONE (13:41)
[2024-07-21] MEDS: ONDANSETRON 4 MG/2 ML VIAL IVP ONE (13:41)
[2024-07-21] MEDS: ACETAMINOPHEN TAB 500 MG TAB PO PRN (13:41)
[2024-07-21] MEDS: HEPARIN SODIUM,PORCINE 5,000 UNIT/ML 1 ML VIAL SQ PRN (13:41)
[2024-07-21 13:57] LABS: Basophils # (A) 0.03 10*3/uL (0.00-0.10); Basophils % (A) 0.6 %; HCT 39.2 % (37.2-46.3); HGB 12.6 g/dL (12.0-15.0); Lymphocytes # (A) 1.07 10*3/uL (0.90-5.00); MCH 26.8 pg (27.0-32.0); MCHC 32.1 g/dL (32.0-37.0); MCV 83.4 fL (80.0-97.0); Mean Platelet Volume 9.5 fL (9.5-12.2); Monocytes % (A) 5.9 %; Neutrophils # (A) 3.58 10*3/uL (1.80-7.70); Neutrophils % (A) 70.3 %; Platelet Count 370 10*3/uL (140-440); RDW 15.6 % (11.5-14.5); WBC 5.09 10*3/uL (4.50-10.00)
[2024-07-21] MEDS ORDERED: LIDOCAINE 1% INJ 10MG/ML (20 ML MDV) ONE (14:11)
[2024-07-21] MEDS ORDERED: fentaNYL (PF) 50 MCG/ML 2 ML AMP ONE (14:11)
[2024-07-21] MEDS ORDERED: GLYCOPYRROLATE 0.2 MG/ML 2 ML VIAL ONE (14:11)
[2024-07-21] MEDS ORDERED: PROPOFOL 10 MG/ML 20 ML VIAL IV ONE (14:11)
[2024-07-21] MEDS ORDERED: ROCURONIUM 10 MG/ML (5 ML VIAL) IV ONE (14:11)
[2024-07-21] MEDS ORDERED: NEOSTIGMINE 1 MG/ML 10 ML VIAL ONE (14:11)
[2024-07-21] MEDS ORDERED: MIDAZOLAM 2 MG/2 ML VIAL ONE (14:11)
[2024-07-21] MEDS ORDERED: SUCCINYLCHOLINE CHLORIDE 200 MG/10 ML VIAL IV ONE (14:11)
[2024-07-21 14:14] LABS: ALT 25 U/L (4-34); African American GFR (CKD) >90 (>60 ml/min/1.73 sqM); Anion Gap 14 mmol/L; Blood Urea Nitrogen 18 mg/dL (7-17); Calcium 10.4 mg/dL (8.4-10.2); Carbon Dioxide 22 mmol/L (22-30); Chloride 104 mmol/L (98-107); Glucose 117 mg/dL (74-99); Non-African American GFR(CKD) >90 (>60 ml/min/1.73 sqM); Sodium 140 mmol/L (137-145); Total Bilirubin 0.9 mg/dL (0.2-1.3)
[2024-07-21] MEDS: ceFAZolin 2 GM in DEXTROSE 5% IN WATER 50 ML IVPB PRN (14:16)
[2024-07-21 14:18] LABS: AST 34 U/L (14-36); Albumin 5.2 g/dL (3.5-5.0); Alkaline Phosphatase 42 U/L (38-126); Potassium 5.2 mmol/L (3.5-5.1); Total Protein 8.2 g/dL (6.3-8.2)
[2024-07-21] MEDS: LIDOCAINE 1%-EPI 1:100,000 20 ML VIAL SQ ONE (14:43)
[2024-07-21 15:27] VITALS: TEMP 96.9
[2024-07-21] MEDS: ONDANSETRON 4 MG/2 ML VIAL IVP STA (15:48)
[2024-07-21] MEDS: HYDROmorphone 0.5 MG/0.5 ML SYRINGE IVP PRN (15:57)
[2024-07-21 16:08] LABS: Glucose,Whole Blood 142 mg/dL (70-110)
[2024-07-21 16:10] VITALS: RESP 16
[2024-07-21 16:53] VITALS: BP 131/86; PULSE 76
--- NOTE | 2024-07-22 11:04 | P.OP ---
Date of Procedure: 07/21/24 Description of Procedure: SURGEON: KAYLEE REDMOND MD PREOPERATIVE DIAGNOSES: 1. Symptomatic gallstones 2. Right upper quadrant abdominal pain 3. Diabetes type 2, not insulin-dependent 4. Hypertensive heart disease 5. Gastroesophageal reflux disease 6. Generalized osteoarthritis 7. Hypothyroidism 8. Hyperlipidemia 9. Depressive disorder 10. Generalized anxiety disorder 11. Family history cardiac disease POSTOPERATIVE DIAGNOSES: 1. Symptomatic gallstones 2. Right upper quadrant abdominal pain 3. Diabetes type 2, not insulin-dependent 4. Hypertensive heart disease 5. Gastroesophageal reflux disease 6. Generalized osteoarthritis 7. Hypothyroidism 8. Hyperlipidemia 9. Depressive disorder 10. Generalized anxiety disorder 11. Family history cardiac disease 12. Intra-abdominal adhesions OPERATION: 1. Robotic-assisted da Noris Xi laparoscopic lysis of adhesions 1. Robotic-assisted da Noris Xi laparoscopic cholecystectomy, multiport with FIREFLY ESTIMATED BLOOD LOSS: 10 mL. SPECIMENS REMOVED: Gallbladder. COMPLICATIONS: None. OPERATIVE FINDINGS: 1. Moderate intra-abdominal adhesions lower midline to the pelvis 2. Moderate pericholecystic adhesions consistent with chronic cholecystitis with lysis of adhesions performed INDICATIONS: The patient is a 54-year-old male who presents with symptomatic gallstones. Robotic assisted laparoscopic approach was described. Benefits and risks of the procedure including but not limited to bleeding, infection, injury to the biliary tree was described. Informed consent was obtained. DESCRIPTION OF PROCEDURE: Patient was brought to the operating room, placed in supine position. After general induction, the abdomen had been prepped and draped in standard sterile fashion. The robotic da Norsi XI system was primed. After a timeout protocol was performed, the patient had been prepped and draped in standard sterile fashion. The patient was injected with indocyanine green. A 5 mm 0 degrees laparoscopic trocar entry was performed along the left upper quadrant. The abdomen insufflated to 15 mmHg pressure which was tolerated well. Diagnostic laparoscopy demonstrated no injury to bowel viscera or mesentery. The liver surface was unremarkable. Next, two 8 mm robotic ports were placed along the right upper abdomen. The camera 8-mm port was maintained along the epigastrium. Another 8 mm port was placed along the left upper abdominal wall after exchanging the 5 mm port. Please note that the ports were placed at least 10 to 15 cm away from the target anatomy of the gallbladder. The robot was docked along the left lateral abdomen. The patient was repositioned in reverse Trendelenburg position. Using a grasper for arm 1, a grasper for arm 4, including hook cautery for arm 3, the robotic system was docked and primed as described. Instruments were interchanged by the manufacturing assistant including hook cautery, Bovie cautery and clip appliers. I had sat at the console. Peritoneal adhesions involving the lower midline and pelvis were identified and undisturbed. The gallbladder had moderate pericholecystic adhesions as well requiring lysis of adhesions. Dome down technique was performed dividing the gallbladder from the avascular plane of the hepatic fossa. Using hook cautery, the gallbladder was dissected free from the liver bed. Next attention was brought to the infundibulum and cystic structures. The infundibulum and cystic duct were dissected free from surrounding tissues. The cystic duct was isolated. FIREFLY was used to identify the cystic artery and cystic structures. A critical view of safety was obtained. Large PLASTIC clips were used throughout the entire case. Using a clip travel pta, 3 clips were placed at the junction of the infundibulum and cystic duct. The cystic duct was divided between clips. Next, the cystic artery was similarly clipped and cauterized. Electro-Bovie cautery was used to remove the gallbladder from the hepatic fossa. Hemostasis was checked and found to be adequate. The robot was undocked. I re-scrubbed into the case. Using a 10 mm Endo Catch bag via the epigastric incision, the specimen was removed from the abdominal cavity. All pneumoperitoneum instruments were evacuated from the abdominal cavity. The incisions were reapproximated using 4-0 Monocryl in an interrupted subcuticular fashion. Fascial defects were less than 8 mm in size. Please note along the trocar sites, local anesthetic was placed as a field block prior to insertion of all instruments. Liquid glue was applied to the skin. At the end of the procedure needle, sponge, and instrument count had been verified correct by the surgical clinical reviewer. The patient was transferred to postanesthesia care unit in stable condition. Intraoperative films were shared with the patient's family. Plan - Discharge Summary Discharge Rx Participant: Yes New Discharge Prescriptions: New Acetaminophen Tab [Tylenol Tab] 1,000 mg PO Q6HR PRN #30 tablet PRN Reason: Pain Simethicone [Gas-X] 125 mg PO AC-TID PRN #20 capsule PRN Reason: Pain Ibuprofen [Motrin] 600 mg PO Q8HR PRN #30 tab PRN Reason: Pain Continue Labetalol [Trandate] 100 mg PO BID metFORMIN HCL ER [Glucophage XR] 500 mg PO BID Levothyroxine Sodium [Synthroid] 50 mcg PO DAILY hydroCHLOROthiazide 12.5 mg PO QAM Pantoprazole [Protonix] 40 mg PO DAILY FLUoxetine HCL [PROzac] 20 mg PO DAILY Fenofibrate,Micronized [Fenofibrate] 134 mg PO DAILY Atorvastatin [Lipitor] 40 mg PO HS Aspirin [Adult Low Dose Aspirin EC] 81 mg PO HS Ondansetron Odt [Zofran ODT] 4 mg PO Q8HR PRN #10 tab PRN Reason: Nausea Empagliflozin [Jardiance] 25 mg PO DAILY Acetaminophen [Tylenol Extra Strength] 500 - 1,000 mg PO Q4-6H PRN PRN Reason: Pain Pioglitazone [Actos] 15 mg PO DAILY estradioL [Estrace] 0.5 mg PO DAILY #90 tablet Progesterone, Micronized [Progesterone] 200 mg PO DAILY #90 capsule Discharge Medication List Labetalol [Trandate] 100 mg PO BID 04/20/18 [History] Levothyroxine Sodium [Synthroid] 50 mcg PO DAILY 04/20/18 [History] Pantoprazole [Protonix] 40 mg PO DAILY 04/20/18 [History] hydroCHLOROthiazide 12.5 mg PO QAM 04/20/18 [History] metFORMIN HCL ER [Glucophage XR] 500 mg PO BID 04/20/18 [History] Aspirin [Adult Low Dose Aspirin EC] 81 mg PO HS 04/21/18 [History] Atorvastatin [Lipitor] 40 mg PO HS 04/21/18 [History] FLUoxetine HCL [PROzac] 20 mg PO DAILY 04/21/18 [History] Fenofibrate,Micronized [Fenofibrate] 134 mg PO DAILY 04/21/18 [History] Pioglitazone [Actos] 15 mg PO DAILY 08/26/22 [History] Progesterone, Micronized [Progesterone] 200 mg PO DAILY #90 capsule 04/06/24 [Rx] estradioL [Estrace] 0.5 mg PO DAILY #90 tablet 04/06/24 [Rx] Ondansetron Odt [Zofran ODT] 4 mg PO Q8HR PRN #10 tab 07/07/24 [Rx] Acetaminophen [Tylenol Extra Strength] 500 - 1,000 mg PO Q4-6H PRN 07/18/24 [History] Empagliflozin [Jardiance] 25 mg PO DAILY 07/18/24 [History] Acetaminophen Tab [Tylenol Tab] 1,000 mg PO Q6HR PRN #30 tablet 07/21/24 [Rx] Ibuprofen [Motrin] 600 mg PO Q8HR PRN #30 tab 07/21/24 [Rx] Simethicone [Gas-X] 125 mg PO AC-TID PRN #20 capsule 07/21/24 [Rx] Follow up Appointment(s)/Referral(s): Kaylee Redmond MD [STAFF PHYSICIAN] - 07/26/24 7:00 pm (Telehealth) Patient Instructions/Handouts: *Surgery [facility] - (Anesthesia) Discharge Instructions Outpatient Surgery, Low Fat Diet (DC), Laparoscopic Cholecystectomy (DC) Activity/Diet/Wound Care/Special Instructions: TELEHEALTH - DR WILL CALL YOU BETWEEN 9 am to 8 pm NO LONG DRIVES OR AIRPLANE RIDES OVER 60 MINUTES FOR THE NEXT 2, 08/04/24 WEEKS DUE TO HIGH RISK OF PULMONARY EMBOLISM/DVTs May drive in 72 hrs, 07/24/24 Recommend low-fat diet for the next 2 days. No lifting over 10 pounds in 2 weeks until 08/04/24 May shower. No bath tub soaks for two weeks until 08/04/24 Diet as tolerated. Use Tylenol, simethicone and ibuprofen or Aleve scheduled for the next 24-48 hours for best pain relief. Use ice along incisions for today to prevent swelling. Discharge Disposition: HOME SELF-CARE
== END 2024-07-21 17:44 | disposition home or self-care (01) ==
LOC: OR 12:32
PROVIDERS: ATTEND Surgery Plastic and Reconstructive Surgery
DX: K80.12 Calculus of gallbladder with acute and chronic cholecystitis without obstruction (principal); K66.0 Peritoneal adhesions (postprocedural) (postinfection); I11.9 Hypertensive heart disease without heart failure; E11.9 Type 2 diabetes mellitus without complications; E78.5 Hyperlipidemia, unspecified; E03.9 Hypothyroidism, unspecified; K21.9 Gastro-esophageal reflux disease without esophagitis; M15.9 Polyosteoarthritis, unspecified; F41.1 Generalized anxiety disorder; F32.A Depression, unspecified; Z79.890 Hormone replacement therapy; Z79.82 Long term (current) use of aspirin; Z79.84 Long term (current) use of oral hypoglycemic drugs; Z79.899 Other long term (current) drug therapy; Z87.891 Personal history of nicotine dependence; Z82.49 Family history of ischemic heart disease and other diseases of the circulatory system; Z83.3 Family history of diabetes mellitus; Z88.0 Allergy status to penicillin
CPT/HCPCS: 47562; S2900; 80053; 85025; 88304